=== PATIENT | male | born 1955 | race Caucasian/White ===

== ENCOUNTER 2022-05-22 13:13 | Outpatient (NON) | payer MEDICARE, OTHER, SELFPAY | END 2022-05-22 13:14 | disposition home or self-care (01) | LOC: ANHLAB 13:13 | PROVIDERS: Visit Provider Nurse Practitioner | DX: C44.42 Squamous cell carcinoma of skin of scalp and neck (principal) | CPT/HCPCS: 88305; 88331 ==